=== PATIENT | male | born 2000 | race Caucasian/White ===

== ENCOUNTER 2022-07-29 19:05 | Emergency (ER) | payer SELFPAY | END 2022-07-29 19:56 | disposition home or self-care (01) | LOC: MW.ED 19:05 | DX: J35.8 Other chronic diseases of tonsils and adenoids (principal) | CPT/HCPCS: 87651-QW; 99283 ==

== ENCOUNTER 2023-01-19 20:25 | Emergency (ER) | payer SELFPAY ==
[2023-01-19] MEDS ORDERED: Lidocaine 1% PF 2 ML SDV INJECT ONE (20:26)
[2023-01-19] MEDS ORDERED: Diphtheria,Pertussis(Acell),Tetanus Vaccine 0.5 ML Syringe IM ONE (20:26)
[2023-01-19] MEDS ORDERED: Acetaminophen/HYDROcodone 325-5 MG Tab PO ONE (21:59)
[2023-01-19] MEDS ORDERED: Cephalexin 500 MG Cap PO ONE (21:59)
== END 2023-01-19 23:00 | disposition home or self-care (01) ==
LOC: MW.ED 20:25 → EDBD 20:25 → MW.ED 23:00
DX: S61.011A Laceration without foreign body of right thumb without damage to nail, initial encounter (principal); Z23 Encounter for immunization; W26.8XXA Contact with other sharp object(s), not elsewhere classified, initial encounter
CPT/HCPCS: 12002; 73140; 90471; 90715; 99283; A9270; J3490